=== PATIENT | female | born 1990 | race African-American/Black ===

== ENCOUNTER 2019-09-19 09:46 | Emergency (ER) | payer MEDICARE, BC ==
[~2019-09-19] VITALS: Ht 180.3 cm; Wt 82.5 kg
[2019-09-19 10:56] VITALS: BP 208/88
== END 2019-09-19 13:04 | disposition left against medical advice (07) ==
LOC: ER 09:46
DX: Z53.21 Procedure and treatment not carried out due to patient leaving prior to being seen by health care provider (principal)